=== PATIENT | female | born 1980 | race Caucasian/White ===

== ENCOUNTER 2016-02-07 13:58 | Outpatient (RCR) | payer BC ==
[~2016-02-07 13:58] MED LIST: ASPI-586 PO; FERR-84 PO; HYDR-3720 PO; NITR-65 PO; PNV91TAB3 PO; SERT50TA PO
--- OUTSIDE RECORDS SUMMARY | 2016-02-07 14:03 | XMS REPORT | Continuity of Care Document ---
Author Author [facility] Organization [facility] Address Unknown Phone Unavailable Care Team Providers Care Inspector Set Up And Lay Out Name Role Phone KAMLESH AIKEN MD PCP Insurance Providers Payer Name Policy Number Subscriber Name Relationship [facility] [id number] Ruth Ann Flores 20 Self / Same As Patient Advance Directives Directive Response Recorded Date/Time Advance Directives No 01/25/16 2:24pm Health Care Power of Wind [employer] No 01/25/16 2:24pm Organ Donor Yes 01/25/16 2:24pm Resuscitation Status Full Code 01/25/16 2:24pm Problems Active Problems Medical Problem Onset Date Status 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 Acute Rh negative status during Unknown Acute Medications Current Home Medications Medication Dose Units Route Directions Days/Qty Instructions Start Date Pnv95/Ferrous Fumarate/Fa 1 Each 1 Each Oral Daily 01/25/16 Aspirin 81 Mg 81 Mg Oral Daily 01/25/16 Ferrous Sulfate 325 Mg 25 Mg Oral 01/25/16 Nitrofurantoin Monohyd/M-Cryst 100 Mg 1 Tab Oral Twice A Day 7 Days Past Home Medications Medication Directions Ordered Status Sertraline Hcl 50 Mg Tablet, 50 Mg Oral Bedtime 02/04/12 Discontinued Acetaminophen/Hydrocodone Bitart ([place]) 1 Each Tablet, 1-2 Tab Oral Every 4HRS as needed for Pain 12/16/13 Discontinued Acetaminophen/Hydrocodone Bitart ([place]) 1 Each Tablet, 1-2 Tab Oral Every 4HRS as needed for Pain 12/16/13 Discontinued Social History Social History Problem Response Recorded Date/Time Alcohol Use Denies Use 12/15/2013 8:09am Recreational Drug Use No 12/15/2013 8:09am Recent Foreign Travel No 01/25/2016 2:26pm Recent Infectious Disease Exposure No 01/25/2016 2:26pm Smoking Status Never a Smoker 01/25/2016 2:25pm Query Response Start Date Stop Date Smoking Status Never a Smoker Hospital Discharge Instructions No hospital discharge instructions. Plan of Care Discharge Date 01/25/16 4:10pm Instructions/Education Provided OB OUTPATIENT DISCHARGE Prescriptions See Medication Section Functional Status No functional status results. Allergies, Adverse Reactions, Alerts No known allergies. Immunizations Name Given Type FLU TRIvalent 5 years - Adult 01/25/16 Administered Vital Signs Acute Vital Signs Vital Response Date/Time Temperature (Fahrenheit) 97.8 degrees F (97.6 - 99.5) 01/25/2016 2:38pm Temperature (Calculated Celsius) 36.15699 degrees C (36.4 - 37.5) 01/25/2016 2:38pm Temperature Source Tympanic 01/25/2016 2:38pm Pulse Rate (adult) 97 bpm (60 - 90) 01/25/2016 3:25pm Respiratory Rate 18 bpm (12 - 24) 01/25/2016 2:38pm Blood Pressure 122/70 mm Hg 01/25/2016 3:25pm Blood Pressure Mean 87 mm Hg 01/25/2016 3:25pm Pain Numeric Pain Scale 1 01/25/2016 3:25pm Height (Feet) 5 feet 01/25/2016 2:25pm Height (Inches) 3.00 inches 01/25/2016 2:25pm Height (Calculated Centimeters) 160.684503 cm 01/25/2016 2:25pm Weight (Pounds) 189 pounds 01/25/2016 2:25pm Weight (Ounces) 0.0 oz 01/25/2016 2:25pm Weight (Calculated Grams) 11666.96 gm 01/25/2016 2:25pm Weight (Calculated Kilograms) 85.912782 kilograms 01/25/2016 2:25pm Calculated BMI 33.5 01/25/2016 2:25pm Results Pending Laboratory Results Test Name Collection Date/Time Procedures No known history of procedures. Encounters Encounter Location Arrival/Admit Date Discharge/Depart Date Attending Provider Departed Clinic [facility] 01/25/16 2:17pm 01/25/16 4: 10pm AKIRA JIMENEZ MD Departed Clinic [facility] 12/27/15 9:28am 12/27/15 10: 50am AKIRA JIMENEZ MD
[2016-02-07] MEDS ORDERED: BETAMETHASONE ACE/NA PHOS 6 MG/ML (CELESTONE SOLUSPAN) IM SCH (14:15)
[2016-02-07] MEDS ORDERED: BETAMETHASONE ACE/NA PHOS 6 MG/ML (CELESTONE SOLUSPAN) ONE (14:18)
[2016-02-08] MEDS ORDERED: BETAMETHASONE ACE/NA PHOS 6 MG/ML (CELESTONE SOLUSPAN) ONE (14:16)
[2016-02-18] MEDS ORDERED: OXYC-465 PO (07:56)
[2016-02-18] MEDS ORDERED: IBUP-1780 PO (07:56)
[2016-02-18] MEDS ORDERED: DOCU100C37 PO (07:56)
[2016-02-18] MEDS ORDERED: LABE200T3 PO (07:56)
== END 2016-05-07 | disposition home or self-care (01) ==
LOC: WSo 13:58
PROVIDERS: ATTEND Obstetrics & Gynecology
DX: O47.03 False labor before 37 completed weeks of gestation, third trimester (principal); Z3A.34 34 weeks gestation of pregnancy
CPT/HCPCS: 96372

== ENCOUNTER 2017-07-25 11:21 | Outpatient (CLI) | payer BC ==
[~2017-07-25 11:21] MED LIST changes: +DOCU100C37 PO; +IBUP-1780 PO; +LABE200T3 PO; +OXYC-465 PO
== END 2017-07-25 12:25 | disposition home or self-care (01) ==
LOC: WSo 11:21
PROVIDERS: ATTEND Obstetrics & Gynecology
DX: Z31.82 Encounter for Rh incompatibility status (principal)
CPT/HCPCS: 96372

== ENCOUNTER → 2017-08-05 | Outpatient (CLI) | payer BC ==
[~2017-08-05] MED LIST changes: +FLUO20CA42 PO; +METH500T2 PO; +PREN1TAB86 PO
== END ==
LOC: LABNPT 12:01
PROVIDERS: ATTEND Obstetrics & Gynecology
DX: O14.03 Mild to moderate pre-eclampsia, third trimester (principal)
CPT/HCPCS: 82570; 84156

== ENCOUNTER → 2017-08-08 | Outpatient (CLI) | payer BC | LOC: LABNPT 14:51 | PROVIDERS: ATTEND Obstetrics & Gynecology | DX: O14.03 Mild to moderate pre-eclampsia, third trimester (principal) | CPT/HCPCS: 82570; 84156 ==

== ENCOUNTER 2017-08-13 13:45 | Observation (INO) | payer BC ==
[2017-08-13] VITALS (10 sets, daily range): BP systolic 141–172; BP diastolic 80–93
[~2017-08-13] VITALS: Ht 157.5 cm; Wt 91.9 kg
[~2017-08-13 13:45] MED LIST changes: -FLUO20CA42 PO; -METH500T2 PO; -PREN1TAB86 PO
[2017-08-13] MEDS ORDERED: FLUO20CA42 PO (14:14)
[2017-08-13] MEDS ORDERED: PREN1TAB86 PO (14:14)
[2017-08-13] MEDS ORDERED: METH500T2 PO (14:14)
[2017-08-13] MEDS: D5 LR IV SOLUTION 1,000 ML IV SCH (15:20)
--- OUTSIDE RECORDS SUMMARY | 2017-08-13 15:22 | XMS REPORT | Continuity of Care Document ---
Author Author [facility] Organization [facility] Address Unknown Phone Unavailable Allergies Active Description Code Type Severity Reaction Onset Reported/Identified Relationship to Patient Clinical Status Yes No Known Drug Allergies [id number] Drug Allergy Unknown N/A 06/23/2007 Medications There is no data. 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.03 FALSE LABOR BEFORE 37 COMPLETED WEEKS OF 01/25/2016 AKIRA JIMENEZ MD, Ot Z3A.32 32 WEEKS GESTATION OF 01/26/2016 AKIRA JIMENEZ MD, Ot O47.03 FALSE LABOR BEFORE 37 COMPLETED WEEKS OF 01/26/2016 AKIRA JIMENEZ MD, Ot Z3A.32 32 WEEKS GESTATION OF 02/08/2016 AKIRA JIMENEZ MD, Ot O28.8 OTHER ABNORMAL FINDINGS ON SCR 02/12/2016 AKIRA JIMENEZ MD, Ot O13.3 GESTATIONAL HTN W/O SIGNIFICANT PROTEINU 02/12/2016 AKIRA JIMENEZ MD, Ot Z3A.34 34 WEEKS GESTATION OF 02/13/2016 AKIRA JIMENEZ MD, Ot O14.03 MILD TO MODERATE PRE-ECLAMPSIA, THIRD TR 02/14/2016 AKIRA JIMENEZ MD, Ot O13.3 GESTATIONAL HTN W/O SIGNIFICANT PROTEINU 02/14/2016 AKIRA JIMENEZ MD, Ot Z3A.34 34 WEEKS GESTATION OF 02/18/2016 AKIRA JIMENEZ MD, Ot O14.14 SEVERE PRE-ECLAMPSIA COMPLICATING CHILDB 02/18/2016 AKIRA JIMENEZ MD, Ot O34.211 MATERN CARE FOR LOW TRANSVERSE SCAR FROM 02/18/2016 AKIRA JIMENEZ MD, Ot O46.003 ANTEPARTUM HEMORRHAGE W COAG DEFECT, UNS 02/18/2016 AKIRA JIMENEZ MD, Ot Z23 ENCOUNTER FOR IMMUNIZATION 02/18/2016 AKIRA JIMENEZ MD, Ot Z37.0 SINGLE LIVE 02/18/2016 AKIRA JIMENEZ MD, Ot Z3A.35 35 WEEKS GESTATION OF 02/22/2016 AKIRA JIMENEZ MD, Ot O28.8 OTHER ABNORMAL FINDINGS ON SCR 03/05/2016 AKIRA JIMENEZ MD, Ot O14.03 MILD TO MODERATE PRE-ECLAMPSIA, THIRD TR 03/05/2016 AKIRA JIMENEZ MD, Ot O28.8 OTHER ABNORMAL FINDINGS ON SCR 03/07/2016 AKIRA JIMENEZ MD, Ot O47.03 FALSE LABOR BEFORE 37 COMPLETED WEEKS OF 03/07/2016 AKIRA JIMENEZ MD, Ot Z3A.34 34 WEEKS GESTATION OF 05/07/2016 AKIRA JIMENEZ MD, Ot O47.03 FALSE LABOR BEFORE 37 COMPLETED WEEKS OF 05/07/2016 AKIRA JIMENEZ MD, Ot Z3A.34 34 WEEKS GESTATION OF 05/08/2016 AKIRA JIMENEZ MD, Ot O47.03 FALSE LABOR BEFORE 37 COMPLETED WEEKS OF 05/08/2016 AKIRA JIMENEZ MD, Ot Z3A.34 34 WEEKS GESTATION OF 07/29/2017 AKIRA JIMENEZ MD, Ot Z31.82 ENCOUNTER FOR RH INCOMPATIBILITY STATUS Procedures Code Description Performed By Performed On [id number] EXTRACTION OF POC, LOW CERVICAL, OPEN AP 02/17/2016 Results Test Result Range RH IMMUNE GLOBULIN [facility] - 12/27/15 09:40 RH IMMUNE GLOBULIN [facility] TRFSD 12/27/15 1020 NRG [id number] - 12/27/15 09:40 [id number] 300ug NR Lot number - 12/27/15 09:40 Lot number [id number] NRG cell screen - 12/27/15 09:40 cell screen 01/05/18 NRG Complete urinalysis with reflex to culture - 01/25/16 14:45 Urine color determination YELLOW NRG Urine clarity determination CLEAR NRG Urine pH measurement by test strip 8 5-9 Specific gravity of urine by test strip 1.015 1.016- 1.022 Urine protein assay by test strip, semi-quantitative 1+ NEGATIVE Urine glucose detection by automated test strip NEGATIVE NEGATIVE Erythrocytes detection in urine sediment by light microscopy 1+ NEGATIVE Urine ketones detection by automated test strip NEGATIVE NEGATIVE Urine nitrite detection by test strip NEGATIVE NEGATIVE Urine total bilirubin detection by test strip NEGATIVE NEGATIVE Urine urobilinogen measurement by automated test strip (mass/volume) NORMAL NORMAL Urine leukocyte esterase detection by dipstick 3+ NEGATIVE Automated urine sediment erythrocyte count by microscopy (number/high power field) RARE NRG Automated urine sediment leukocyte count by microscopy (number/high power field ) [HPF] NRG Bacteria detection in urine sediment by light microscopy MODERATE NRG Squamous epithelial cells detection in urine sediment by light microscopy 5-10 NRG Crystals detection in urine sediment by light microscopy NONE NRG Casts detection in urine sediment by light microscopy NONE NRG Mucus detection in urine sediment by light microscopy NEGATIVE NRG Complete urinalysis with reflex to culture YES NRG Urine protein/creatinine mass ratio - 01/25/16 14:45 Urine protein measurement (mass/volume) < mg/dL 6-12 Urine creatinine measurement (mass/volume) 28 mg/dL 30- 125 Urine protein/creatinine mass ratio TNP NRG Bacterial urine culture - 01/25/16 14:45 URINE CULTURE RESULTS <10,000/ML NRG Complete blood count (CBC) with automated white blood cell (WBC) differential - 01/25/16 14:55 Blood leukocytes automated count (number/volume) 8.6 10*3/uL 4.3-11.0 Blood erythrocytes automated count (number/volume) 3.62 10*6/uL 4.35-5.85 Venous blood hemoglobin measurement (mass/volume) 10.9 g/dL 11.5-16.0 Blood hematocrit (volume fraction) 32 % 35-52 Automated erythrocyte mean corpuscular volume 89 [foz_us] 80-99 Automated erythrocyte mean corpuscular hemoglobin (mass per erythrocyte) 30 pg 25-34 Automated erythrocyte mean corpuscular hemoglobin concentration measurement ( mass/volume) 34 g/dL 32-36 Automated erythrocyte distribution width ratio 13.4 % 10.0-14.5 Automated blood platelet count (count/volume) 135 10*3/uL 130-400 Automated blood platelet mean volume measurement 11.8 [foz_us] 7.4-10.4 Automated blood neutrophils/100 leukocytes 81 % 42-75 Automated blood lymphocytes/100 leukocytes 12 % 12-44 Blood monocytes/100 leukocytes 7 % 0-12 Automated blood eosinophils/100 leukocytes 1 % 0-10 Automated blood basophils/100 leukocytes 0 % 0-10 Blood neutrophils automated count (number/volume) 7.0 10*3 1.8-7.8 Blood lymphocytes automated count (number/volume) 1.0 10*3 1.0-4.0 Blood monocytes automated count (number/volume) 0.6 10*3 0.0-1.0 Automated eosinophil count 0.0 10*3/uL 0.0-0.3 Automated blood basophil count (count/volume) 0.0 10*3/uL 0.0-0.1 Comprehensive metabolic panel - 01/25/16 14:55 Serum or plasma sodium measurement (moles/volume) 137 mmol/L 135-145 Serum or plasma potassium measurement (moles/volume) 3.6 mmol/L 3.6-5.0 Serum or plasma chloride measurement (moles/volume) 107 mmol/L 98-107 Carbon dioxide 22 mmol/L 21-32 Serum or plasma anion gap determination (moles/volume) 8 mmol/L 5-14 Serum or plasma urea nitrogen measurement (mass/volume) 5 mg/dL 7-18 Serum or plasma creatinine measurement (mass/volume) 0.61 mg/dL 0.60-1.30 Serum or plasma urea nitrogen/creatinine mass ratio 8 NRG Serum or plasma creatinine measurement with calculation of estimated glomerular filtration rate > NRG Serum or plasma glucose measurement (mass/volume) 76 mg/dL 70-105 Serum or plasma calcium measurement (mass/volume) 9.4 mg/dL 8.5-10.1 Serum or plasma total bilirubin measurement (mass/volume) 0.4 mg/dL 0.1-1.0 Serum or plasma alkaline phosphatase measurement (enzymatic activity/volume) 101 U/L 40-136 Serum or plasma aspartate aminotransferase measurement (enzymatic activity/ volume) 24 U/L 5-34 Serum or plasma alanine aminotransferase measurement (enzymatic activity/volume ) 31 U/L 0-55 Serum or plasma protein measurement (mass/volume) 5.7 g/dL 6.4-8.2 Serum or plasma albumin measurement (mass/volume) 3.4 g/dL 3.2-4.5 Serum or plasma uric acid measurement (mass/volume) - 01/25/16 14:55 Serum or plasma uric acid measurement (mass/volume) 4.7 mg/dL 2.6-7.2 Lactate dehydrogenase 1 [enzymatic activity/volume] in serum or plasma - 14:55 Lactate dehydrogenase 1 [enzymatic activity/volume] in serum or plasma 135 U/L 125-220 [id number] - 01/25/16 14:55 [id number] SPECIMEN AVAILABLE [facility] Urine protein/creatinine mass ratio - 02/07/16 10:36 Urine protein measurement (mass/volume) < mg/dL 6-12 Urine creatinine measurement (mass/volume) 22 mg/dL 30- 125 Urine protein/creatinine mass ratio TNP NR Urine protein/creatinine mass ratio - 02/10/16 10:12 Urine protein measurement (mass/volume) < mg/dL 6-12 Urine creatinine measurement (mass/volume) 23 mg/dL 30- 125 Urine protein/creatinine mass ratio TNP NR Urine protein/creatinine mass ratio - 02/12/16 10:40 Urine protein measurement (mass/volume) 29 mg/dL 6-12 Urine creatinine measurement (mass/volume) 162 mg/dL 30- 125 Urine protein/creatinine mass ratio 0.18 NR Complete blood count (CBC) with automated white blood cell (WBC) differential - 02/12/16 11:45 Blood leukocytes automated count (number/volume) 10.7 10*3/uL 4.3-11.0 Blood erythrocytes automated count (number/volume) 3.56 10*6/uL 4.35-5.85 Venous blood hemoglobin measurement (mass/volume) 10.7 g/dL 11.5-16.0 Blood hematocrit (volume fraction) 32 % 35-52 Automated erythrocyte mean corpuscular volume 89 [foz_us] 80-99 Automated erythrocyte mean corpuscular hemoglobin (mass per erythrocyte) 30 pg 25-34 Automated erythrocyte mean corpuscular hemoglobin concentration measurement ( mass/volume) 34 g/dL 32-36 Automated erythrocyte distribution width ratio 13.4 % 10.0-14.5 Automated blood platelet count (count/volume) 110 10*3/uL 130-400 Automated blood platelet mean volume measurement 12.7 [foz_us] 7.4-10.4 Automated blood neutrophils/100 leukocytes 82 % 42-75 Automated blood lymphocytes/100 leukocytes 9 % 12-44 Blood monocytes/100 leukocytes 8 % 0-12 Automated blood eosinophils/100 leukocytes 1 % 0-10 Automated blood basophils/100 leukocytes 0 % 0-10 Blood neutrophils automated count (number/volume) 8.8 10*3 1.8-7.8 Blood lymphocytes automated count (number/volume) 1.0 10*3 1.0-4.0 Blood monocytes automated count (number/volume) 0.9 10*3 0.0-1.0 Automated eosinophil count 0.1 10*3/uL 0.0-0.3 Automated blood basophil count (count/volume) 0.0 10*3/uL 0.0-0.1 Comprehensive metabolic panel - 02/12/16 11:45 Serum or plasma sodium measurement (moles/volume) 139 mmol/L 135-145 Serum or plasma potassium measurement (moles/volume) 3.6 mmol/L 3.6-5.0 Serum or plasma chloride measurement (moles/volume) 109 mmol/L 98-107 Carbon dioxide 24 mmol/L 21-32 Serum or plasma anion gap determination (moles/volume) 6 mmol/L 5-14 Serum or plasma urea nitrogen measurement (mass/volume) 9 mg/dL 7-18 Serum or plasma creatinine measurement (mass/volume) 0.72 mg/dL 0.60-1.30 Serum or plasma urea nitrogen/creatinine mass ratio 13 NRG Serum or plasma creatinine measurement with calculation of estimated glomerular filtration rate > NRG Serum or plasma glucose measurement (mass/volume) 96 mg/dL 70-105 Serum or plasma calcium measurement (mass/volume) 10.3 mg/dL 8.5-10.1 Serum or plasma total bilirubin measurement (mass/volume) 0.3 mg/dL 0.1-1.0 Serum or plasma alkaline phosphatase measurement (enzymatic activity/volume) 101 U/L 40-136 Serum or plasma aspartate aminotransferase measurement (enzymatic activity/ volume) 18 U/L 5-34 Serum or plasma alanine aminotransferase measurement (enzymatic activity/volume ) 26 U/L 0-55 Serum or plasma protein measurement (mass/volume) 5.2 g/dL 6.4-8.2 Serum or plasma albumin measurement (mass/volume) 3.0 g/dL 3.2-4.5 Serum or plasma uric acid measurement (mass/volume) - 02/12/16 11:45 Serum or plasma uric acid measurement (mass/volume) 6.3 mg/dL 2.6-7.2 Lactate dehydrogenase 1 [enzymatic activity/volume] in serum or plasma - 11:45 Lactate dehydrogenase 1 [enzymatic activity/volume] in serum or plasma 168 U/L 125-220 [id number] - 02/12/16 11:48 [id number] SPECIMEN AVAILABLE NRG Urine protein/creatinine mass ratio - 02/14/16 17:00 Urine protein measurement (mass/volume) 16 mg/dL 6-12 Urine creatinine measurement (mass/volume) 50 mg/dL 30- 125 Urine protein/creatinine mass ratio 0.32 NRG Complete blood count (CBC) with automated white blood cell (WBC) differential - 02/16/16 05:36 Blood leukocytes automated count (number/volume) 9.8 10*3/uL 4.3-11.0 Blood erythrocytes automated count (number/volume) 3.46 10*6/uL 4.35-5.85 Venous blood hemoglobin measurement (mass/volume) 10.4 g/dL 11.5-16.0 Blood hematocrit (volume fraction) 31 % 35-52 Automated erythrocyte mean corpuscular volume 90 [foz_us] 80-99 Automated erythrocyte mean corpuscular hemoglobin (mass per erythrocyte) 30 pg 25-34 Automated erythrocyte mean corpuscular hemoglobin concentration measurement ( mass/volume) 33 g/dL 32-36 Automated erythrocyte distribution width ratio 13.5 % 10.0-14.5 Automated blood platelet count (count/volume) 93 10*3/uL 130-400 Automated blood platelet mean volume measurement 12.4 [foz_us] 7.4-10.4 Automated blood neutrophils/100 leukocytes 80 % 42-75 Automated blood lymphocytes/100 leukocytes 13 % 12-44 Blood monocytes/100 leukocytes 6 % 0-12 Automated blood eosinophils/100 leukocytes 1 % 0-10 Automated blood basophils/100 leukocytes 0 % 0-10 Blood neutrophils automated count (number/volume) 7.8 10*3 1.8-7.8 Blood lymphocytes automated count (number/volume) 1.3 10*3 1.0-4.0 Blood monocytes automated count (number/volume) 0.6 10*3 0.0-1.0 Automated eosinophil count 0.1 10*3/uL 0.0-0.3 Automated blood basophil count (count/volume) 0.0 10*3/uL 0.0-0.1 Comprehensive metabolic panel - 02/16/16 05:36 Serum or plasma sodium measurement (moles/volume) 138 mmol/L 135-145 Serum or plasma potassium measurement (moles/volume) 4.0 mmol/L 3.6-5.0 Serum or plasma chloride measurement (moles/volume) 109 mmol/L 98-107 Carbon dioxide 21 mmol/L 21-32 Serum or plasma anion gap determination (moles/volume) 8 mmol/L 5-14 Serum or plasma urea nitrogen measurement (mass/volume) 8 mg/dL 7-18 Serum or plasma creatinine measurement (mass/volume) 0.72 mg/dL 0.60-1.30 Serum or plasma urea nitrogen/creatinine mass ratio 11 NRG Serum or plasma creatinine measurement with calculation of estimated glomerular filtration rate > NRG Serum or plasma glucose measurement (mass/volume) 104 mg/dL 70-105 Serum or plasma calcium measurement (mass/volume) 9.7 mg/dL 8.5-10.1 Serum or plasma total bilirubin measurement (mass/volume) 0.3 mg/dL 0.1-1.0 Serum or plasma alkaline phosphatase measurement (enzymatic activity/volume) 94 U/L 40-136 Serum or plasma aspartate aminotransferase measurement (enzymatic activity/ volume) 25 U/L 5-34 Serum or plasma alanine aminotransferase measurement (enzymatic activity/volume ) 31 U/L 0-55 Serum or plasma protein measurement (mass/volume) 5.1 g/dL 6.4-8.2 Serum or plasma albumin measurement (mass/volume) 2.9 g/dL 3.2-4.5 Lactate dehydrogenase 1 [enzymatic activity/volume] in serum or plasma - 05:36 Lactate dehydrogenase 1 [enzymatic activity/volume] in serum or plasma 195 U/L 125-220 Automated blood complete blood count (hemogram) panel - 02/16/16 18:30 Blood leukocytes automated count (number/volume) 11.5 10*3/uL 4.3-11.0 Blood erythrocytes automated count (number/volume) 3.60 10*6/uL 4.35-5.85 Venous blood hemoglobin measurement (mass/volume) 11.0 g/dL 11.5-16.0 Blood hematocrit (volume fraction) 32 % 35-52 Automated erythrocyte mean corpuscular volume 90 [foz_us] 80-99 Automated erythrocyte mean corpuscular hemoglobin (mass per erythrocyte) 31 pg 25-34 Automated erythrocyte mean corpuscular hemoglobin concentration measurement ( mass/volume) 34 g/dL 32-36 Automated erythrocyte distribution width ratio 13.5 % 10.0-14.5 Automated blood platelet count (count/volume) 106 10*3/uL 130-400 Automated blood platelet mean volume measurement 12.3 [foz_us] 7.4-10.4 Comprehensive metabolic panel - 02/16/16 18:30 Serum or plasma sodium measurement (moles/volume) 138 mmol/L 135-145 Serum or plasma potassium measurement (moles/volume) 3.8 mmol/L 3.6-5.0 Serum or plasma chloride measurement (moles/volume) 107 mmol/L 98-107 Carbon dioxide 23 mmol/L 21-32 Serum or plasma anion gap determination (moles/volume) 8 mmol/L 5-14 Serum or plasma urea nitrogen measurement (mass/volume) 6 mg/dL 7-18 Serum or plasma creatinine measurement (mass/volume) 0.72 mg/dL 0.60-1.30 Serum or plasma urea nitrogen/creatinine mass ratio 8 NRG Serum or plasma creatinine measurement with calculation of estimated glomerular filtration rate > NRG Serum or plasma glucose measurement (mass/volume) 106 mg/dL 70-105 Serum or plasma calcium measurement (mass/volume) 9.4 mg/dL 8.5-10.1 Serum or plasma total bilirubin measurement (mass/volume) 0.3 mg/dL 0.1-1.0 Serum or plasma alkaline phosphatase measurement (enzymatic activity/volume) 110 U/L 40-136 Serum or plasma aspartate aminotransferase measurement (enzymatic activity/ volume) 27 U/L 5-34 Serum or plasma alanine aminotransferase measurement (enzymatic activity/volume ) 37 U/L 0-55 Serum or plasma protein measurement (mass/volume) 5.7 g/dL 6.4-8.2 Serum or plasma albumin measurement (mass/volume) 3.3 g/dL 3.2-4.5 Lactate dehydrogenase 1 [enzymatic activity/volume] in serum or plasma - 18:30 Lactate dehydrogenase 1 [enzymatic activity/volume] in serum or plasma 187 U/L 125-220 Complete blood count (CBC) with automated white blood cell (WBC) differential - 02/17/16 05:20 Blood leukocytes automated count (number/volume) 10.0 10*3/uL 4.3-11.0 Blood erythrocytes automated count (number/volume) 3.28 10*6/uL 4.35-5.85 Venous blood hemoglobin measurement (mass/volume) 9.8 g/dL 11.5-16.0 Blood hematocrit (volume fraction) 30 % 35-52 Automated erythrocyte mean corpuscular volume 90 [foz_us] 80-99 Automated erythrocyte mean corpuscular hemoglobin (mass per erythrocyte) 30 pg 25-34 Automated erythrocyte mean corpuscular hemoglobin concentration measurement ( mass/volume) 33 g/dL 32-36 Automated erythrocyte distribution width ratio 13.5 % 10.0-14.5 Automated blood platelet count (count/volume) 89 10*3/uL 130-400 Automated blood platelet mean volume measurement 13.1 [foz_us] 7.4-10.4 Automated blood neutrophils/100 leukocytes 74 % 42-75 Automated blood lymphocytes/100 leukocytes 17 % 12-44 Blood monocytes/100 leukocytes 8 % 0-12 Automated blood eosinophils/100 leukocytes 1 % 0-10 Automated blood basophils/100 leukocytes 0 % 0-10 Blood neutrophils automated count (number/volume) 7.4 10*3 1.8-7.8 Blood lymphocytes automated count (number/volume) 1.7 10*3 1.0-4.0 Blood monocytes automated count (number/volume) 0.8 10*3 0.0-1.0 Automated eosinophil count 0.1 10*3/uL 0.0-0.3 Automated blood basophil count (count/volume) 0.0 10*3/uL 0.0-0.1 Blood type T Indirect antibody screen panel - 02/17/16 05:20 ABO+Rh group ON NRG Transfusion band number [id number] [facility] Blood group antibody screen NEGATIVE NRG Complete blood count (CBC) with automated white blood cell (WBC) differential - 02/18/16 05:55 Blood leukocytes automated count (number/volume) 8.8 10*3/uL 4.3-11.0 Blood erythrocytes automated count (number/volume) 2.82 10*6/uL 4.35-5.85 Venous blood hemoglobin measurement (mass/volume) 8.5 g/dL 11.5-16.0 Blood hematocrit (volume fraction) 25 % 35-52 Automated erythrocyte mean corpuscular volume 90 [foz_us] 80-99 Automated erythrocyte mean corpuscular hemoglobin (mass per erythrocyte) 30 pg 25-34 Automated erythrocyte mean corpuscular hemoglobin concentration measurement ( mass/volume) 34 g/dL 32-36 Automated erythrocyte distribution width ratio 13.4 % 10.0-14.5 Automated blood platelet count (count/volume) 80 10*3/uL 130-400 Automated blood platelet mean volume measurement 11.9 [foz_us] 7.4-10.4 Automated blood neutrophils/100 leukocytes 79 % 42-75 Automated blood lymphocytes/100 leukocytes 14 % 12-44 Blood monocytes/100 leukocytes 6 % 0-12 Automated blood eosinophils/100 leukocytes 2 % 0-10 Automated blood basophils/100 leukocytes 0 % 0-10 Blood neutrophils automated count (number/volume) 6.9 10*3 1.8-7.8 Blood lymphocytes automated count (number/volume) 1.2 10*3 1.0-4.0 Blood monocytes automated count (number/volume) 0.5 10*3 0.0-1.0 Automated eosinophil count 0.1 10*3/uL 0.0-0.3 Automated blood basophil count (count/volume) 0.0 10*3/uL 0.0-0.1 Comprehensive metabolic panel - 02/18/16 05:55 Serum or plasma sodium measurement (moles/volume) 135 mmol/L 135-145 Serum or plasma potassium measurement (moles/volume) 3.7 mmol/L 3.6-5.0 Serum or plasma chloride measurement (moles/volume) 106 mmol/L 98-107 Carbon dioxide 21 mmol/L 21-32 Serum or plasma anion gap determination (moles/volume) 8 mmol/L 5-14 Serum or plasma urea nitrogen measurement (mass/volume) 4 mg/dL 7-18 Serum or plasma creatinine measurement (mass/volume) 0.65 mg/dL 0.60-1.30 Serum or plasma urea nitrogen/creatinine mass ratio 6 NRG Serum or plasma creatinine measurement with calculation of estimated glomerular filtration rate > NRG Serum or plasma glucose measurement (mass/volume) 79 mg/dL 70-105 Serum or plasma calcium measurement (mass/volume) 6.4 mg/dL 8.5-10.1 Serum or plasma total bilirubin measurement (mass/volume) 0.3 mg/dL 0.1-1.0 Serum or plasma alkaline phosphatase measurement (enzymatic activity/volume) 88 U/L 40-136 Serum or plasma aspartate aminotransferase measurement (enzymatic activity/ volume) 24 U/L 5-34 Serum or plasma alanine aminotransferase measurement (enzymatic activity/volume ) 26 U/L 0-55 Serum or plasma protein measurement (mass/volume) 4.4 g/dL 6.4-8.2 Serum or plasma albumin measurement (mass/volume) 2.6 g/dL 3.2-4.5 Lactate dehydrogenase 1 [enzymatic activity/volume] in serum or plasma - 05:55 Lactate dehydrogenase 1 [enzymatic activity/volume] in serum or plasma 232 U/L 125-220 RH IMMUNE GLOBULIN RHOPHYLAC - 07/25/17 11:35 RH IMMUNE GLOBULIN RHOPHYLAC PRSMD TRFSD 07/25/17 1208 NRG [id number] - 07/25/17 11:35 [id number] 300ug NRG Lot number - 07/25/17 11:35 Lot number [id number] NRG cell screen - 07/25/17 11:35 cell screen 02/08/19 NRG Urine protein/creatinine mass ratio - 08/05/17 12:02 Urine protein measurement (mass/volume) 16 mg/dL 6-12 Urine creatinine measurement (mass/volume) 86 mg/dL 30- 125 Urine protein/creatinine mass ratio 0.19 NRG Urine protein/creatinine mass ratio - 08/08/17 14:30 Urine protein measurement (mass/volume) 14 mg/dL 6-12 Urine creatinine measurement (mass/volume) 67 mg/dL 30- 125 Urine protein/creatinine mass ratio 0.21 NRG Encounters ACCT No. Visit Date/Time Discharge Status Pt. Type Provider Facility Loc./Unit Complaint [id number] 08/05/2017 12:01:00 08/05/2017 23:59:59 CLS Outpatient AKIRA JIMENEZ MD [facility] LABT [id number] 07/25/2017 11:21:00 07/25/2017 12:25:00 DIS Outpatient AKIRA JIMENEZ MD [facility] RH NEGATIVE [id number] 05/08/2016 00:10:00 05/08/2016 23:59:59 CLS Preadmit AKIRA JIMENEZ MD [facility] FOR PREMATURE DELIVERY [id number] 02/07/2016 13:58:00 05/07/2016 00:01:00 DIS Outpatient AKIRA JIMENEZ MD [facility] FOR PREMATURE DELIVERY [id number] 02/14/2016 20:43:00 02/18/2016 15:50:00 DIS Inpatient AKIRA JIMENEZ MD [facility] LDRP PREECLAMPTIC [id number] 02/14/2016 16:52:00 02/14/2016 23:59:59 CLS Outpatient AKIRA JIMENEZ MD [facility] LABT OTHER ABNORMAL FINDING ON SCREENING [id number] 02/12/2016 10:28:00 02/12/2016 15:45:00 DIS Outpatient AKIRA JIMENEZ MD [facility] HEADACHE;ELEVATED BP [id number] 02/10/2016 10:31:00 02/10/2016 23:59:59 CLS Outpatient AKIRA JIMENEZ MD [facility] LABT MILD TO MODERATE PRE-ECLAMPSIA, THIRD TRIMESTER [id number] 02/07/2016 10:53:00 02/07/2016 23:59:59 CLS Outpatient AKIRA JIMENEZ MD [facility] LABT OTHER ABNORMAL FINDINGS ON SCREENING [id number] 01/25/2016 14:17:00 01/25/2016 16:10:00 DIS Outpatient AKIRA JIMENEZ MD [facility] HIGH BLOOD PRESSURE [id number] 12/27/2015 09:28:00 12/27/2015 10:50:00 DIS Outpatient AKIRA JIMENEZ MD [facility] WSo RH NEGATIVE [id number] 08/26/2014 11:20:00 08/26/2014 23:59:59 CLS Outpatient AKIRA JIMENEZ MD [facility] [id number] 12/16/2013 09:37:00 12/16/2013 13:50:00 DIS Outpatient AKIRA JIMENEZ MD [facility] [id number] 12/15/2013 08:02:00 12/15/2013 10:25:00 DIS Emergency [id number] 02/05/2013 14:07:00 02/05/2013 23:59:59 CLS Outpatient [id number] 01/21/2013 10:07:00 01/21/2013 23:59:59 CLS Outpatient [id number] 08/08/2017 15:19:00 Document Registration [id number] 08/26/2014 11:20:37 ACT Document Registration
--- NOTE | 2017-08-13 17:50 | History & Physical ---
History and Physical Date Seen by Provider: Aug 13, 2017 Time Seen by Provider: 17:43 This patient is a 36-year-old A1 white female with a due date of 2017 putting her now at 31 1/7 weeks gestation. Her previous 2 pregnancies were complicated by preeclampsia. Current was complicated by an increased risk for Down syndrome at . She saw Dr. Gil in [place] who did a targeted ultrasound and said that everything looked "OK". This patient was seen in my clinic on this date and found with a blood pressure 171/101. She has been on Aldomet for PIH up to this point. Lab work was obtained that showed a urine protein creatinine ratio of 0.45. Platelet count was 121,000 but has been chronically low her liver enzymes are normal. LDH is normal. I discussed this patient with Dr. Lorenz a high-risk OB doctor at [facility] who provides call coverage and outpatient evaluation [facility]. He suggested inpatient management either here via [facility] or with transfer to a tertiary care facility with plan for delivery with development of severe preeclampsia or with attainment of 37 weeks gestation. This has been discussed with the patient and as she is currently considered a mild preeclamptic she has requested that she be managed here in [place]. She understands that with the development of severe preeclampsia we will stabilize and transfer. If we cannot stabilize her medical condition with the development of severe preeclampsia we will proceed with delivery and that would likely be followed by transfer of her baby to a NICU. She understands all this and agrees with this plan. Allergies are none Medications are vitamins/ASA 81 mg per day/Prozac 20 mg by mouth daily/ Aldomet 250 mg twice a day that we have changing to 500 mg twice a day on this date Past medical history, past surgical history, obstetric history, family history, and social histories are per the antepartum record HEENT exam is normal Neck is supple no lymphadenopathy no thyromegaly Abdomen is gravid soft nontender nondistended Extremities show no clubbing cyanosis. There is no Homans sign. Pelvic exam is deferred DTRs are 3+ to 4 over 4. Lab work obtained in my clinic included a urine protein creatinine ratio of 0.45 platelet count of 121,000 which is up from the 107,000 of a week ago Assessment and plan 31-1/7 weeks gestation with preeclampsia on the borderline for severe preeclampsia. Plan will be for stabilize an inpatient management providing she remains a mild preeclampsia. If she progresses to severe preeclampsia then we will then entertain transfer to a tertiary care center with high voltage electrician and NICU facilities. We will hold on magnesium until the patient demonstrates severe preeclampsia. We will hold on delivery until patient demonstrates severe preeclampsia or 37 weeks gestation 31-/7 weeks' gestation with preeclampsia Allergies and Home Medications Allergies Coded Allergies: No Known Drug Allergies (Verified , 06/23/07) Home Medications Fluoxetine HCl 20 Mg Capsule, 20 MG PO DAILY, (Reported) Methyldopa 500 Mg Tablet, 500 MG PO BID, (Reported) Vit W-Ca,Fe,FA(<1 mg) 1 Each Tablet, 1 EACH PO DAILY, (Reported) Patient Home Medication List Home Medication List Reviewed: Yes Clinical Quality Measures DVT/VTE Risk/Contraindication: Risk Factor Score Per Nursin RFS Level Per Nursing on Admit: 3=High AKIRA JIMENEZ MD Aug 13, 2017 5:50 pm
[2017-08-13] MEDS ORDERED: ASPIRIN 81 MG CHEW (CHILDREN'S ASA) ONE (18:06)
[2017-08-13] MEDS: BETAMETHASONE ACE/NA PHOS 6 MG/ML (CELESTONE SOLUSPAN) IM SCH (18:10)
[2017-08-13] MEDS ORDERED: ASPI-586 PO (19:49)
[2017-08-13] MEDS: METHYLDOPA 250 MG PO SCH (21:10)
[2017-08-14] VITALS (8 sets, daily range): BP systolic 135–172; BP diastolic 74–82
--- NOTE | 2017-08-14 08:14 | Progress Note-Standard ---
Standard Progress Note Progress Notes/Assess & Plan Date Seen by Provider: Aug 14, 2017 Time Seen by Provider: 08:11 Progress/Assessment & Plan Vital Signs Date Time Temp Pulse Resp B/P (MAP) Pulse Ox O2 Delivery O2 Flow Rate FiO2 08/14/17 04:30 97.8 99 18 149/82 (104) 96 Room Air 08/14/17 00:30 98.6 83 18 141/75 (97) 97 Room Air 08/13/17 21:35 98.2 83 18 148/80 (102) 97 Room Air 08/13/17 20:54 78 18 161/80 (107) Room Air 08/13/17 20:49 80 18 172/90 (117) Room Air 08/13/17 20:31 76 18 164/86 (112) Room Air 08/13/17 16:45 98.9 95 18 141/85 (103) 98 Room Air 08/13/17 14:52 90 18 145/86 08/13/17 14:45 90 18 145/86 (105) Room Air 08/13/17 14:25 86 18 143/93 (110) Room Air 08/13/17 14:16 87 18 141/92 (108) Room Air 08/13/17 13:54 99.1 89 18 164/92 (116) 98 Room Air I & O 08/14/17 07:00 Intake Total 1940 ml Output Total 1275 ml Balance 665 ml Pressures are as noted above. Generally stable and less than 160/110 - pressures are episodically higher and this has been associated with some degree of stimulation. The patient is without complaint. She denies headache, denies shortness of breath, denies nausea vomiting, denies blurry vision. She does feel baby moving she denies contractions and denies rupture membranes or bleeding. Randy that she feels better than she did yesterday. The abdomen is gravid soft nontender nondistended Extremities show no clubbing cyanosis. There is no Homans sign. Assessment and plan hospital day number 2 patient is admitted for observation secondary to preeclampsia. At this point she is a mild preeclamptic but she is threatening to progress to severe preeclamptic. With severe preeclampsia we will transfer to a tertiary care center. Her case has been reviewed with a high school mathematics teacher doctor/family at [facility] who recommended inpatient management. He agreed with observation without IV magnesium until patient progresses to severe preeclampsia and then magnesium should be started as well as entertaining transfer. We will obtain obstetric ultrasound today AKIRA JIMENEZ MD Aug 14, 2017 8:14 am
[2017-08-14] MEDS: METHYLDOPA 250 MG PO SCH ×2 (08:20→21:22)
[2017-08-14] MEDS ORDERED: ASPIRIN 81 MG CHEW (CHILDREN'S ASA) PO SCH (09:00)
[2017-08-14] MEDS ORDERED: ALPRAZolam 0.25 MG (XANAX) TAB PO PRN (12:45)
[2017-08-14] MEDS ORDERED: PATIENT MAY USE OWN MEDS, ALL MC SCH (13:00)
[2017-08-14] MEDS ORDERED: PRENATAL VITAMIN 1 EA TAB PO SCH ×2 (13:00→14:00)
[2017-08-14] MEDS: D5 LR IV SOLUTION 1,000 ML IV SCH (14:31)
--- NOTE | 2017-08-14 17:23 | Diagnostic Imaging Report ---
INDICATION: Evaluate growth. OB sonography performed to evaluate for growth and placental status and amniotic fluid. TECHNIQUE: Multiple real-time grayscale images were obtained over the gravid uterus. COMPARISON: None during this . FINDINGS: A single live intrauterine fetus is seen measuring 31 weeks 3 days by composite measurements. Sonographic EDC is 10/13/2017. Amniotic fluid appears qualitatively normal. Amniotic fluid index is 9.8 cm. Placenta is grade 2 and on the right side with no evidence of previa. heart rate was 147 beats per minute. The fetus is in cephalic presentation. survey was not requested. Biometrical measurements are as follows: Biparietal 7.95 cm, age 32 weeks 0 days. Head circumference 28.47 cm, age 31 weeks 2 days. Abdominal circumference 27.40 cm, age 31 weeks 4 days. Femur length 5.86 cm, age 30 weeks 5 days. Sonographic estimate age: 31 weeks 3 days. Sonographic estimated date of delivery: 10/13/17. Estimated Weight: 1723 gm (+/- 252 gm). LMP percentile: 36%. heart rate: 147 beats per minute. number: 1 of 1. IMPRESSION: Single live intrauterine fetus measuring 31 weeks 3 days in size in cephalic presentation. There is no evidence of placenta previa. Amniotic fluid index appeared normal. There is no detectable abnormality. Dictated by: Dictated on workstation # [id number]
[2017-08-14] MEDS: BETAMETHASONE ACE/NA PHOS 6 MG/ML (CELESTONE SOLUSPAN) IM SCH (18:21)
[2017-08-14] MEDS ORDERED: FLUoxetine HCL 20 MG (PROzac) CAP PO SCH (21:00)
[2017-08-14] MEDS ORDERED: [UNRECOGNIZED DRUG - OTHER] PO SCH (21:00)
[2017-08-14] MEDS ORDERED: NON-FORMULARY MEDICATION 1 EA EA (Fluoxetine HCl (Prozac) 20 MG) PO SCH (21:00)
[2017-08-14] MEDS ORDERED: NON-FORMULARY MEDICATION 1 EA EA (Aspirin (Aspir 81) 81 MG) PO SCH (21:00)
[2017-08-14] MEDS ORDERED: ASPIRIN E.C. 81 MG (ECOTRIN) TAB PO SCH (21:00)
[2017-08-14] MEDS ORDERED: PRENATAL VIT W CA FE FA PO SCH (21:00)
--- NOTE | 2017-08-14 23:39 | Progress Note-Standard ---
Standard Progress Note Progress Notes/Assess & Plan Date Seen by Provider: Aug 14, 2017 Time Seen by Provider: 23:35 Progress/Assessment & Plan Vital Signs Date Time Temp Pulse Resp B/P (MAP) Pulse Ox O2 Delivery O2 Flow Rate FiO2 08/14/17 04:30 97.8 99 18 149/82 (104) 96 Room Air 08/14/17 00:30 98.6 83 18 141/75 (97) 97 Room Air 08/13/17 21:35 98.2 83 18 148/80 (102) 97 Room Air 08/13/17 20:54 78 18 161/80 (107) Room Air 08/13/17 20:49 80 18 172/90 (117) Room Air 08/13/17 20:31 76 18 164/86 (112) Room Air 08/13/17 16:45 98.9 95 18 141/85 (103) 98 Room Air 08/13/17 14:52 90 18 145/86 08/13/17 14:45 90 18 145/86 (105) Room Air 08/13/17 14:25 86 18 143/93 (110) Room Air 08/13/17 14:16 87 18 141/92 (108) Room Air 08/13/17 13:54 99.1 89 18 164/92 (116) 98 Room Air I & O 08/14/17 07:00 Intake Total 1940 ml Output Total 1275 ml Balance 665 ml Pressures are as noted above. Generally stable and less than 160/110 - pressures are episodically higher and this has been associated with some degree of stimulation. The patient is without complaint. She denies headache, denies shortness of breath, denies nausea vomiting, denies blurry vision. She does feel baby moving she denies contractions and denies rupture membranes or bleeding. Randy that she feels better than she did yesterday. The abdomen is gravid soft nontender nondistended Extremities show no clubbing cyanosis. There is no Homans sign. Assessment and plan hospital day number 2 patient is admitted for observation secondary to preeclampsia. At this point she is a mild preeclamptic but she is threatening to progress to severe preeclamptic. With severe preeclampsia we will transfer to a tertiary care center. Her case has been reviewed with a high school librarian doctor/family at [facility] who recommended inpatient management. He agreed with observation without IV magnesium until patient progresses to severe preeclampsia and then magnesium should be started as well as entertaining transfer. We will obtain obstetric ultrasound today same date at 2336 patient is without complaint. She denies [place]. She denies contractions Vital Signs Date Time Temp Pulse Resp B/P (MAP) Pulse Ox O2 Delivery O2 Flow Rate FiO2 08/14/17 16:45 99.1 98 18 141/80 (100) 99 Room Air 08/14/17 12:30 99.0 104 18 135/79 (97) 100 Room Air 08/14/17 11:50 103 18 138/77 08/14/17 08:20 98.6 103 18 138/77 (97) 99 Room Air 08/14/17 04:30 97.8 99 18 149/82 (104) 96 Room Air 08/14/17 00:30 98.6 83 18 141/75 (97) 97 Room Air I & O 08/14/17 07:00 Intake Total 1940 ml Output Total 1275 ml Balance 665 ml Blood pressures are stable and less labile than on admission the abdomen is gravid soft nontender ext b-9 assessment and plan hospital day 2 at 31+ weeks' gestation with preeclampsia. Inpatient management will contin until patient reaches 37 weeks gestation or until she develops severe preeclamp that point she will be delivered AKIRA JIMENEZ MD Aug 14, 2017 11:39 pm
[2017-08-15 00:29] VITALS: BP 142/68
[2017-08-15 05:18] VITALS: BP 149/79
[2017-08-15 05:50] LABS: BASOPHILS % (AUTO) 0 % (0-10); EOSINOPHILS % (AUTO) 0 % (0-10); HEMATOCRIT 25 % (35-52); HEMOGLOBIN 8.3 G/DL (11.5-16.0); LYMPHOCYTES # (AUTO) 0.7 X 10^3 (1.0-4.0); LYMPHOCYTES % (AUTO) 7 % (12-44); MEAN CORPUSCULAR HEMOGLOBIN 30 PG (25-34); MEAN CORPUSCULAR HGB CONC 34 G/DL (32-36); MEAN CORPUSCULAR VOLUME 89 FL (80-99); MEAN PLATELET VOLUME 13.1 FL (7.4-10.4); MONOCYTES # (AUTO) 0.4 X 10^3 (0.0-1.0); MONOCYTES % (AUTO) 4 % (0-12); NEUTROPHILS # (AUTO) 8.5 X 10^3 (1.8-7.8); NEUTROPHILS % (AUTO) 89 % (42-75); PLATELET COUNT 105 10^3/uL (130-400); RED BLOOD COUNT 2.76 10^6/uL (4.35-5.85); RED CELL DISTRIBUTION WIDTH 14.2 % (10.0-14.5); WHITE BLOOD COUNT 9.7 10^3/uL (4.3-11.0)
[2017-08-15 06:16] LABS: ALANINE AMINOTRANSFERASE 55 U/L (0-55); ALBUMIN 2.8 GM/DL (3.2-4.5); ALKALINE PHOSPHATASE 69 U/L (40-136); BILIRUBIN,TOTAL 0.3 MG/DL (0.1-1.0); BUN/CREATININE RATIO 8; CALCIUM 10.5 MG/DL (8.5-10.1); CARBON DIOXIDE 18 MMOL/L (21-32); CHLORIDE 109 MMOL/L (98-107); CREATININE SERUM 0.72 MG/DL (0.60-1.30); GFR ESTIMATED > 60; GLUCOSE 143 MG/DL (70-105); POTASSIUM 3.1 MMOL/L (3.6-5.0); SODIUM 139 MMOL/L (135-145); TOTAL PROTEIN 4.9 GM/DL (6.4-8.2)
[2017-08-15 06:27] LABS: ANISOCYTOSIS SLIGHT; BAND NEUTROPHILS 4 %; BASOPHILS % (MANUAL) 0 %; EOSINOPHILS % (MANUAL) 1 %; LYMPHOCYTES % (MANUAL) 3 %; MONOCYTES % (MANUAL) 2 %; NEUTROPHILS % (MANUAL) 90 %; POLYCHROMASIA SLIGHT; TOXIC GRANULATION/VACUOLAZATIO 1+
--- NOTE | 2017-08-15 07:51 | Progress Note-Standard ---
Standard Progress Note Progress Notes/Assess & Plan Date Seen by Provider: Aug 15, 2017 Time Seen by Provider: 07:48 Progress/Assessment & Plan Vital Signs Date Time Temp Pulse Resp B/P (MAP) Pulse Ox O2 Delivery O2 Flow Rate FiO2 08/14/17 04:30 97.8 99 18 149/82 (104) 96 Room Air 08/14/17 00:30 98.6 83 18 141/75 (97) 97 Room Air 08/13/17 21:35 98.2 83 18 148/80 (102) 97 Room Air 08/13/17 20:54 78 18 161/80 (107) Room Air 08/13/17 20:49 80 18 172/90 (117) Room Air 08/13/17 20:31 76 18 164/86 (112) Room Air 08/13/17 16:45 98.9 95 18 141/85 (103) 98 Room Air 08/13/17 14:52 90 18 145/86 08/13/17 14:45 90 18 145/86 (105) Room Air 08/13/17 14:25 86 18 143/93 (110) Room Air 08/13/17 14:16 87 18 141/92 (108) Room Air 08/13/17 13:54 99.1 89 18 164/92 (116) 98 Room Air I & O 08/14/17 07:00 Intake Total 1940 ml Output Total 1275 ml Balance 665 ml Pressures are as noted above. Generally stable and less than 160/110 - pressures are episodically higher and this has been associated with some degree of stimulation. The patient is without complaint. She denies headache, denies shortness of breath, denies nausea vomiting, denies blurry vision. She does feel baby moving she denies contractions and denies rupture membranes or bleeding. Randy that she feels better than she did yesterday. The abdomen is gravid soft nontender nondistended Extremities show no clubbing cyanosis. There is no Homans sign. Assessment and plan hospital day number 2 patient is admitted for observation secondary to preeclampsia. At this point she is a mild preeclamptic but she is threatening to progress to severe preeclamptic. With severe preeclampsia we will transfer to a tertiary care center. Her case has been reviewed with a highway safety engineer doctor/family at [facility] who recommended inpatient management. He agreed with observation without IV magnesium until patient progresses to severe preeclampsia and then magnesium should be started as well as entertaining transfer. We will obtain obstetric ultrasound today same date at 2336 patient is without complaint. She denies [place]. She denies contractions Vital Signs Date Time Temp Pulse Resp B/P (MAP) Pulse Ox O2 Delivery O2 Flow Rate FiO2 08/14/17 16:45 99.1 98 18 141/80 (100) 99 Room Air 08/14/17 12:30 99.0 104 18 135/79 (97) 100 Room Air 08/14/17 11:50 103 18 138/77 08/14/17 08:20 98.6 103 18 138/77 (97) 99 Room Air 08/14/17 04:30 97.8 99 18 149/82 (104) 96 Room Air 08/14/17 00:30 98.6 83 18 141/75 (97) 97 Room Air I & O 08/14/17 07:00 Intake Total 1940 ml Output Total 1275 ml Balance 665 ml Blood pressures are stable and less labile than on admission the abdomen is gravid soft nontender ext b-9 assessment and plan hospital day 2 at 31+ weeks' gestation with preeclampsia. Inpatient management will contin until patient reaches 37 weeks gestation or until she develops severe preeclamp that point she will be delivered August 15, 2017 Patient complaint. She denies headache, denies shortness of breath, denies nausea vomiting, patient denies contractions. She does feel baby moving. Vital Signs Date Time Temp Pulse Resp B/P (MAP) Pulse Ox O2 Delivery O2 Flow Rate FiO2 08/15/17 05:18 99.0 91 18 149/79 (102) Room Air 08/15/17 00:29 98.7 94 18 142/68 (92) 98 Room Air 08/14/17 20:34 98.6 92 18 157/74 (101) 99 Room Air 08/14/17 20:30 91 18 172/80 (110) Room Air 08/14/17 16:45 99.1 98 18 141/80 (100) 99 Room Air 08/14/17 12:30 99.0 104 18 135/79 (97) 100 Room Air 08/14/17 11:50 103 18 138/77 08/14/17 08:20 98.6 103 18 138/77 (97) 99 Room Air I & O 08/15/17 07:00 Intake Total 3840 ml Output Total 2450 ml Balance 1390 ml Signs are stable. Patient is afebrile. Blood pressures seemed to be a bit more labile. Blood pressures at this point are acceptable. Laboratory Tests Test 08/15/17 05:00 Range/Units White Blood Count 9.7 4.3-11.0 10^3/uL Red Blood Count 2.76 L 4.35-5.85 10^6/uL Hemoglobin 8.3 L 11.5-16.0 G/DL Hematocrit 25 L 35-52 % Mean Corpuscular Volume 89 80-99 FL Mean Corpuscular Hemoglobin 30 25-34 PG Mean Corpuscular Hemoglobin Concent 34 32-36 G/DL Red Cell Distribution Width 14.2 10.0-14.5 % Platelet Count 105 L 130-400 10^3/uL Mean Platelet Volume 13.1 H 7.4-10.4 FL Neutrophils (%) (Auto) 89 H 42-75 % Lymphocytes (%) (Auto) 7 L 12-44 % Monocytes (%) (Auto) 4 0-12 % Eosinophils (%) (Auto) 0 0-10 % Basophils (%) (Auto) 0 0-10 % Neutrophils # (Auto) 8.5 H 1.8-7.8 X 10^3 Lymphocytes # (Auto) 0.7 L 1.0-4.0 X 10^3 Monocytes # (Auto) 0.4 0.0-1.0 X 10^3 Eosinophils # (Auto) 0.0 0.0-0.3 10^3/uL Basophils # (Auto) 0.0 0.0-0.1 10^3/uL Neutrophils % (Manual) 90 % Lymphocytes % (Manual) 3 % Monocytes % (Manual) 2 % Eosinophils % (Manual) 1 % Basophils % (Manual) 0 % Band Neutrophils 4 % Toxic Granulation 1+ Polychromasia SLIGHT Anisocytosis SLIGHT Sodium Level 139 135-145 MMOL/L Potassium Level 3.1 L 3.6-5.0 MMOL/L Chloride Level 109 H 98-107 MMOL/L Carbon Dioxide Level 18 L 21-32 MMOL/L Anion Gap 12 5-14 MMOL/L Blood Urea Nitrogen 6 L 7-18 MG/DL Creatinine 0.72 0.60-1.30 MG/DL Estimat Glomerular Filtration Rate > 60 BUN/Creatinine Ratio 8 Glucose Level 143 H 70-105 MG/DL Calcium Level 10.5 H 8.5-10.1 MG/DL Total Bilirubin 0.3 0.1-1.0 MG/DL Aspartate Amino Transf (AST/SGOT) 33 5-34 U/L Alanine Aminotransferase (ALT/SGPT) 55 0-55 U/L Alkaline Phosphatase 69 40-136 U/L Lactate Dehydrogenase 149 125-220 U/L Total Protein 4.9 L 6.4-8.2 GM/DL Albumin 2.8 L 3.2-4.5 GM/DL Lab work is reviewed. Platelet count is 105. The ALT is 55 AST is 33 both of these are at the upper limit of normal. Physical exam is benign. The abdomen is gravid nontender Extreme show no clubbing sent. There is no Homans sign. Assessment and plan hospital day number 3 patient at 31+ weeks' gestation with preeclampsia and now with potentially developing help syndrome. With the platelet count low the ALT and AST elevating will discuss this patient with high -risk OB at [facility] in contemplation of transfer. AKIRA JIMENEZ MD Aug 15, 2017 7:51 am
--- NOTE | 2017-08-15 07:53 | Discharge Summary ---
Discharge Summary 31+ week with PIH now superimposed developing help syndrome This patient is a 37-year-old white female admitted from my clinic with PIH and an elevated urine protein creatinine ratio consistent with preeclampsia. Her blood pressures have been in the 170s over 100 ranges. Blood pressures came down with bed rest. Her platelet count historically has been low but was stable. Her liver enzymes were normal. On hospital day 2 the patient was stable. Ultrasound was normal except for the caveat that the placenta looked mature patient has been stable through the night. Now hospital day 3 the patient's blood pressures have been basically stable she' s had 1 episode of a systolic over 170 she feels well however the platelet count has dropped the AST and ALT while still normal. The upper range of normal which which is an elevation. My plan now is for transfer to high-risk OB care at [facility] Principal diagnoses this hospitalization is 31+ weeks gestation with PIH and with superimposed preeclampsia/help syndrome Operation procedure monitoring obstetric ultrasound lab work Discharge via transfer to [facility] and was been discussed with patient and patient agrees that is being arranged Clinical Quality Measures DVT/VTE Risk/Contraindication: Risk Factor Score Per Nursin RFS Level Per Nursing on Admit: 3=High AKIRA JIMENEZ MD Aug 15, 2017 7:53 am
--- NOTE | 2017-08-15 08:05 | Discharge Instructions ---
Discharge Instructions Discharge Medications New, Converted or Re-Newed RX: Other Activity & Diet Discharge Diet: No Restrictions (+) Activity as Tolerated: No Orders-Post D/C & Referrals Transfer patient to [facility]. Ground ambulance the care of Dr. Neumann High-Risk OB AKIRA JIMENEZ MD Aug 15, 2017 8:05 am
[2017-08-15] MEDS ORDERED: MAGNESIUM SULFATE DRIP 500 ML IV SCH (08:15)
[2017-08-15] MEDS ORDERED: MAGNESIUM 4 GM/100 ML IVPB 100 ML IV ONE (08:15)
[2017-08-15 08:30] VITALS: BP 182/88
[2017-08-15 08:38] VITALS: BP 158/79
[2017-08-15 08:44] VITALS: BP 158/79
[2017-08-15] MEDS ORDERED: hydrALAZINE (APESOLINE) 20 MG/ML VIAL IV NR (08:45)
[2017-08-15 08:59] VITALS: BP 158/79
== END 2017-08-15 09:12 | disposition short-term general hospital (02) ==
LOC: LDRP 13:45 → UNDOADMOB 13:51 → UNDODISOB 08-15 09:12
PROVIDERS: ADMIT Obstetrics & Gynecology; ATTEND Obstetrics & Gynecology
DX: O11.3 Pre-existing hypertension with pre-eclampsia, third trimester (principal); O10.013 Pre-existing essential hypertension complicating pregnancy, third trimester; Z3A.31 31 weeks gestation of pregnancy
CPT/HCPCS: 36415; 76805; 80053; 83615; 85007; 85027; 96361; 96372; 96374; 96375; 96376; 99211; G0378

== ENCOUNTER → 2017-08-13 | Outpatient (CLI) | payer BC | LOC: LABNPT 10:53 | PROVIDERS: ATTEND Obstetrics & Gynecology | DX: O28.8 Other abnormal findings on antenatal screening of mother (principal) | CPT/HCPCS: 82570; 84156 ==

== ENCOUNTER → 2018-09-19 | Outpatient (CLI) | payer BC ==
[~2018-09-19] MED LIST changes: +FLUO20CA42 PO; -LABE200T3 PO; +LABE200T7 PO; +METH500T23 PO; +PREN1TAB86 PO
--- NOTE | 2018-09-22 09:42 | Diagnostic Imaging Report ---
Indication: Routine screening. Comparison is made with prior mammogram from 08/26/2014 and 01/21/2013. 2-D and 3-D bilateral screening mammography was performed with CAD. Both breasts are heterogeneously dense, limiting the sensitivity of mammography. Since prior mammogram 4 years ago patient has developed numerous calcifications in both breasts, more numerous on the left. The majority of calcifications appear to be fairly punctate and benign in appearance. Calcifications in the medial aspect of the left breast posterior depth best seen on the cc view indeterminant and additional views are recommended circumscribed nodular density with lucent center in the outer portion left breast is noted. It appears to have been present on prior studies most consistent with intraparenchymal lymph node. This does appear to be slightly larger than prior exams. Axillae are unremarkable. Impression: BI-RADS category 0 Left breast calcifications. Additional views are recommended. In addition, probable intraparenchymal lymph node upper outer left breast is noted that appears slightly larger. Ultrasound of the upper-outer left breast is recommended for further evaluation ACR BI-RADS Category 0: Incomplete. (Needs additional imaging evaluation). Result letter will be mailed to the patient. Note: At least 10% of breast cancer is not imaged by mammography. \ Dictated by: Dictated on workstation # [id number]
== END ==
LOC: RAD 08:14
PROVIDERS: ATTEND Obstetrics & Gynecology
DX: Z12.31 Encounter for screening mammogram for malignant neoplasm of breast (principal)
CPT/HCPCS: 77067

== ENCOUNTER → 2018-09-26 | Outpatient (CLI) | payer BC ==
--- NOTE | 2018-09-26 16:21 | Diagnostic Imaging Report ---
INDICATION: Left breast nodule. CORRELATION is made with screening exam from 09/19/2018. FINDINGS: Sonographic interrogation of the outer left breast was performed. There is a fatty lymph node at the 2 o'clock location of the left breast 10 cm from the nipple measuring approximately 9 mm x 5 mm x 8 mm. This likely accounts for the mammographic density. Additional lymph nodes in the upper-outer left breast are also seen. No suspicious finding is identified. IMPRESSION: BI-RADS Category 2. Benign appearing lymph node upper outer left breast accounting for the mammographic density. The patient should return for routine annual screening. ACR BI-RADS Category 2: Benign findings. Result letter will be mailed to the patient. Note: At least 10% of breast cancer is not imaged by mammography. Dictated by: Dictated on workstation # [id number]
--- NOTE | 2018-09-26 16:26 | Diagnostic Imaging Report ---
INDICATION: Left breast calcifications and left breast nodule. COMPARISON: Correlation is made with screening exams from 09/19/2018 and 08/26/2014. EXAMINATION: Unilateral left 2D and 3D diagnostic mammography was performed. This included a conventional 90 degree lateral view as well as magnification CC and ML views. FINDINGS: There are numerous calcifications throughout the left breast. These have developed since the study from 2014. Majority of the calcifications appear to be punctate. No pleomorphism is seen. No branching pattern is identified. There is a circumscribed nodule in the upper outer left breast, approximately 8-9 cm from the nipple. This may represent intramammary lymph node. Ultrasound of this will be performed. IMPRESSION: 1. Multiple calcifications throughout the left breast, likely benign. 2. Left breast nodule. Further evaluation with ultrasound is recommended and will be performed today. ACR BI-RADS Category 0: Incomplete. (Needs additional imaging evaluation). Result letter will be mailed to the patient. Note: At least 10% of breast cancer is not imaged by mammography. Dictated by: Dictated on workstation # [id number]
== END ==
LOC: RAD 14:08
PROVIDERS: ATTEND Obstetrics & Gynecology
DX: N63.21 Unspecified lump in the left breast, upper outer quadrant (principal)
CPT/HCPCS: 76642

== ENCOUNTER → 2020-12-30 | Outpatient (CLI) | payer BC ==
[~2020-12-30] MED LIST changes: -OXYC-465 PO; +OXYC-556 PO
--- NOTE | 2021-01-02 08:44 | Diagnostic Imaging Report ---
INDICATION: Routine screening. COMPARISON: 09/19/2018 and 08/26/2014. TECHNIQUE: 2D and 3D bilateral screening mammography was performed with CAD. FINDINGS: Both breasts remain heterogeneously dense, limiting the sensitivity of mammography. Benign-appearing calcifications, most numerous on the left, appear stable. The circumscribed nodule in the upper outer left breast appears stable. No new mass or malignant-appearing microcalcifications are seen. The axillae are unremarkable. IMPRESSION: No mammographic features suspicious for malignancy are identified. ACR BI-RADS Category 2: Benign findings. Result letter will be mailed to the patient. Note: At least 10% of breast cancer is not imaged by mammography. Dictated by: Dictated on workstation # [id number]
== END ==
LOC: RAD 15:38
PROVIDERS: ATTEND Obstetrics & Gynecology
DX: Z12.31 Encounter for screening mammogram for malignant neoplasm of breast (principal)
CPT/HCPCS: 77063; 77067

== ENCOUNTER → 2022-07-24 | Outpatient (CLI) | payer BC ==
[~2022-07-24] MED LIST changes: +LABE200T10 PO; -LABE200T7 PO
--- NOTE | 2022-07-25 10:11 | Diagnostic Imaging Report ---
INDICATION: Routine screening. COMPARISON: 12/30/2020 and 09/19/2018. TECHNIQUE: 2D and 3D bilateral screening mammography was performed with CAD. FINDINGS: Both breasts are heterogeneously dense, limiting the sensitivity of mammography. The circumscribed nodule in the upper outer left breast is stable. No new mass or malignant-appearing microcalcifications are seen. There are scattered benign consultations throughout both breasts. The axillae are unremarkable. IMPRESSION: No mammographic features suspicious for malignancy are identified. ACR BI-RADS Category 2: Benign findings. Result letter will be mailed to the patient. Note: At least 10% of breast cancer is not imaged by mammography. Dictated by: Dictated on workstation # [id number]
== END ==
LOC: RAD 09:30
PROVIDERS: ATTEND Family Medicine
DX: Z12.31 Encounter for screening mammogram for malignant neoplasm of breast (principal)
CPT/HCPCS: 77063; 77067